=== PATIENT | male | born 1960 | race Caucasian/White ===

== ENCOUNTER 2022-05-22 11:04 | Emergency (ER) | payer SELFPAY ==
[2022-05-22] MEDS ORDERED: Vancomycin 1 GM/200 ML (FROZEN) BAG ONE (11:30)
[2022-05-22 11:31] LABS: Analyzer IN Cardio ER; Base Excess (BEa) -9.3 mEq/L (-2.0 to +3.0); CO2 Tension 56.4 mmHg (35.0-45.0); Calcium, Ionized (arterial) 0.99 mmol/L (1.12-1.30); Carboxyhemoglobin (COHb) 4.6 gm% (0.0-3.0); O2 Tension (PaO2), arterial 545.1 mmHg (> 80.0); Potassium - ABG Lab 5.26 mmol/L (3.70-5.30); pH, Arterial 7.17 (7.35-7.45)
[2022-05-22 11:32] LABS: Puncture Site RRA
[2022-05-22] MEDS ORDERED: NOREPINEPHRINE 8 MG/250 ML-D5W 250 ML ONE (11:38)
[2022-05-22] MEDS ORDERED: Sodium Bicarb 50 MEQ/50 ML Abboject 8.4% SYRINGE ONE (11:40)
[2022-05-22] MEDS ORDERED: EPINEPHrine 1 MG/10 ML Abboject SYRINGE ONE (11:40)
[2022-05-22] MEDS ORDERED: Calcium Chloride 1 GM/10 ML Abboject SYRINGE ONE (11:40)
[2022-05-22 11:54] LABS: ALT (SGPT) 1184 U/L (8-55); AST (SGOT) 1818 U/L (5-34); Albumin 3.3 g/dL (3.4-4.8); Alkaline Phosphatase 158 U/L (40-110); Anion Gap 22 mmol/L (10-20); BUN (Urea Nitrogen) 17 mg/dL (8.4-25.7); Bilirubin, Total 5.8 mg/dL (0.2-1.2); Calc. Creatinine Clearance 0 mL/min (70-130); Calcium 8.2 mg/dL (7.8-10.44); Carbon Dioxide 24 mmol/L (23-31); Chloride 82 mmol/L (98-107); Estimated GFR 52; Glucose 86 mg/dL (80-115); Lipase 44 U/L (8-78); Magnesium 2.3 mg/dL (1.6-2.6); Protein, Total 6.3 g/dL (5.8-8.1); Sodium 122 mmol/L (136-145)
[2022-05-22] MEDS ORDERED: Cefepime 2 GM VIAL ONE (11:54)
[2022-05-22 11:56] LABS: INR-International Normal Ratio 3.2; PTT 57.4 sec (22.9-36.1); Prothrombin Time 34.1 sec (12.0-14.7)
[2022-05-22 11:58] LABS: Hemoglobin 16.2 g/dL (14.0-18.0); Mean Corpuscular HGB CONC 30.8 g/dL (32.0-36.0); Mean Corpuscular Hemoglobin 32.6 pg (27.0-31.0); Red Blood Cell (RBC) Count 4.97 mill/uL (4.70-6.10)
[2022-05-22 11:58] LABS: Bacteria/HPF 4+ HPF (None Seen); Bilirubin Negative (Negative); Blood, Urine 3+ (Negative); Clarity Extra Turbid (Clear); Glucose, Urine (Dipstick) 70 mg/dL (Negative); Ketone, Urine Negative (Negative); Leukocyte 25 Leu/uL (Negative); Nitrite Negative (Negative); Protein, Urine (Dipstick) 300 mg/dL (Neg-Trace); RBC/HPF Greater than 50 HPF (0-3); Specific Gravity, Urine 1.018 (1.002-1.036); Sperm/HPF 2+ HPF (None Seen); Squamous Epithelial None Seen HPF (0-3); WBC/HPF Greater than 50 HPF (0-3); pH, Urine 6.5 (5.0-9.0)
[2022-05-22 12:19] LABS: SARS-CoV-2 NAA Rapid Test Not Detected (NotDetected)
[2022-05-22 12:23] LABS: #Eosinphils 0.1 thou/uL (0.0-0.7); #Monocytes 0.6 thou/uL (0.11-0.59); #Neutrophils 12.7 thou/uL (1.40-6.50); %Basophils 0.2 % (0.0-1.0); %Eosinophils 0.7 % (0.0-10.0); %Lymphocytes 6.8 % (21.0-51.0); %Monocytes 4.5 % (0.0-10.0); %Neutrophils 87.9 % (42.0-75.0); Platelet Morphology Comment PLT clumps seen-ADEQ; RBC Distribution Width 14.5 % (11.5-14.5); White Blood Cell (WBC) Count 14.4 10x3/uL (4.8-10.8)
[2022-05-22 12:26] LABS: CKMB 27.9 ng/mL (0-6.6)
[2022-05-22] MEDS ORDERED: Morphine 4 MG/ML VIAL ONE (12:42)
[2022-05-22] MEDS ORDERED: LORazepam 2 MG/ML SYR.(CARPUJECT) ONE (12:55)
== END 2022-05-22 13:09 | disposition expired ==
LOC: ERS 11:04
DX: A41.9 Sepsis, unspecified organism (principal); I21.4 Non-ST elevation (NSTEMI) myocardial infarction; N39.0 Urinary tract infection, site not specified; T68.XXXA Hypothermia, initial encounter; Z20.822 Contact with and (suspected) exposure to COVID-19
CPT/HCPCS: 36600; 51702; 71045; 80053; 81003; 81015; 82274; 82553; 82805; 83605; 83690; 83735; 83880; 84484; 85025; 85610; 85730; 87040; 87077; 87086; 87149; 87186; 92950; 93005; 94002; 96365; 96375; 99292; J0171; J0692; J2060; J2270; J3370-JW; U0002